=== PATIENT | male | born 1945 | race Caucasian/White ===

== ENCOUNTER 2025-07-13 08:08 | Day surgery (SDC) | payer OTHER ==
[~2025-07-13] VITALS: Ht 172.7 cm; Wt 99.0 kg
[2025-07-13] VITALS (12 sets, daily range): BP systolic 92–141; BP diastolic 60–84
[~2025-07-13 08:08] MED LIST: FINA5 PO; MULTI-VITAMIN1 EAC2 PO; ROSUVASTATIN CA20 MG PO; TAMS.4ER PO; ZESTORETIC 20-121 EA PO
[2025-07-13] MEDS ORDERED: CeFAZolin Sodium 2,000 MG in NS 100 ML IV SCH ×2 (08:25→18:20)
[2025-07-13] MEDS ORDERED: Chlorhexidine Mouth Care 15 ML UDC MT SCH (08:25)
[2025-07-13] MEDS ORDERED: Tranexamic Acid 100 ML IV SCH (08:25)
[2025-07-13] MEDS ORDERED: Ropivacaine 0.5% HCl/Pf 123.125 MG,EPINEPHrine HCL 0.25 MG,Ketorolac Tromethamine 15 MG... INFIL SCH (08:25)
[2025-07-13] MEDS ORDERED: ePHEDrine Sulfate 50 MG/ML 1ML Injection IV PRN (08:30)
[2025-07-13] MEDS ORDERED: Ondansetron HCl 2 MG / ML 2ML Vial IV PRN ×3 (08:30→10:25)
[2025-07-13] MEDS ORDERED: Albuterol 2.5 MG/3 ML VIAL INH PRN (08:30)
[2025-07-13] MEDS ORDERED: FentaNYL Citrate 50 MCG/ML 2 ML Injection IV PRN ×4 (08:35)
[2025-07-13] MEDS ORDERED: HYDROmorphone HCl/Pf 1MG SYR IV PRN ×5 (08:35→10:30)
[2025-07-13] MEDS ORDERED: HydrALAZINE HCl 20 MG / ML 1ML Vial IV PRN ×2 (08:35)
[2025-07-13] MEDS ORDERED: Metoclopramide HCl 5MG / ML 2ML Vial IV PRN ×2 (08:40→10:20)
[2025-07-13] MEDS ORDERED: Midazolam HCl 1MG / ML 2ML Vial ONE (08:41)
[2025-07-13] MEDS ORDERED: FentaNYL Citrate 50 MCG/ML 2 ML Injection ONE (08:41)
--- NOTE | 2025-07-13 08:51 | NUR ---
Pre-Op teaching done. Pt verbalizes understanding. Ambulatory in Day Surgery. History, Chart, Medications and Allergies reviewed before start of procedure. Patient confirms NPO status and agrees with scheduled surgery. Patient States Post-Procedure ride home has been arranged.
[2025-07-13] MEDS ORDERED: Magnesium Hydroxide Conc 10 ML UDC PO PRN (10:20)
[2025-07-13] MEDS ORDERED: Phenylephrine HCl 100 MCG/ML-NS 10MLSYR (1MG/10ML) ONE ×2 (10:29→11:41)
[2025-07-13] MEDS ORDERED: FLU VACC TS2025(65UP)/MF59C/PF 45 MCG/0.5 ML SYRINGE IM SCH (10:40)
[2025-07-13] MEDS ORDERED: ePHEDrine Sulfate 50 MG/ML 1ML Injection ONE (11:18)
[2025-07-13] MEDS ORDERED: Ketorolac Tromethamine 15mg Vial IV SCH (12:00)
--- NOTE | 2025-07-13 13:00 | NUR ---
TRANSFER TO 216. PT ARRIVED TO UNIT STATING PAIN /. DENIES PAIN FOR PRN AT THE TIME. PT EDUCATED TO INFORM RN SOON HE NOTICES PAIN INCREASE. PT STATED HE UNDERSTOOD. SNACKS AND BEVERAGES PROVIDED. PT BREATHING EVEN & UNLABORED ON RA. VS REVIEWED. L KNEE DRESSING C/D/I WITH NO BLEEDING OR SWELLING NOTED. AT BEDSIDE. CALL LIGHT IN REACH.
[2025-07-13] MEDS ORDERED: ACETAMINOPHEN500 MG PO (14:16)
[2025-07-13] MEDS ORDERED: ASPI81CH PO (14:16)
[2025-07-13] MEDS ORDERED: DOCU100 PO (14:17)
[2025-07-13] MEDS ORDERED: OXYC5 PO (14:18)
--- NOTE | 2025-07-13 14:30 | NUR ---
ATTEMPT TO VOID SENSATION RETURNED TO BLE AND PT WAS ABLE TO LIFT BOTH LEGS OFF BED FOR 10 SECONDS EACH. PT UP AND OOB AMBULATED TO BATHROOM WITH RN. UNABLE TO VOID AT THIS TIME. AMBULATED BACK TO BED.
--- NOTE | 2025-07-13 18:27 | NUR ---
SHIFT SUMMARY PT HAS ATTEMPTED TO VOID MULTIPLE TIMES SINCE CLEARED TO AMBULATE. PREVIOUSLY PT STATES HE HAD NO URGE TO URINATE, PT NOW STATES HE HAS THE URGE TO URINATE, BUT IS HAVING A HARD TIME INICIATING A STREAM. PT IS EATING DINNER AND IS AGREEABLE TO ANOTHER BLADDER SCAN AFTER HE FINISHES. CLEARED BY PHYSICAL THERAPY. VS REVIEWED. PT ANXIOUS ABOUT THE POSSIBLE NEED FOR A STRAIGHT CATH, BUT STATES IF HE "CANNOT PEE SOON HE IS AGREEABLE TO ONE". AT BEDSIDE. CALL LIGHT IN REACH.
--- NOTE | 2025-07-13 22:05 | NUR ---
DISCHARGE SUMMARY: PT D/C HOME W/ TO DRIVE. PT A/O, VSS, DENIES DIZZINESS/SOB. DRESSING CDI, PT MEDICATED FOR PAIN PER EMAR. PT DENIES N/T TO BLE. PT VOIDED W/O DIFFICULTY, PVR SCAN <200. DC INSTRUCTIONS AND F/C CARE REVIEWED W/PT AND . ALL QUESTIONS ANSWERED. PT AMB VIA W/C TO CAR, ASSISTED INTO CAR W/O DIFFIUCLTY. NO DISTRESS NOTED AT TIME OF DC.
[2025-07-14] MEDS ORDERED: Multivitamins 1 Tab PO SCH (09:00)
== END 2025-07-13 22:10 | disposition home or self-care (01) ==
LOC: ORSCMMR 08:08 → ORD 09:30 → SURS 13:27 → ORSCMMR 22:10 → ORD 08-17 09:30
PROVIDERS: Orthopaedic Surgery
PROC: 0SRD0JA Replacement of Left Knee Joint with Synthetic Substitute, Uncemented, Open Approach (ICD-10-PCS; principal; 2025-07-13 09:30)
DX: M17.12 Unilateral primary osteoarthritis, left knee (principal); I10 Essential (primary) hypertension; E78.5 Hyperlipidemia, unspecified; E66.9 Obesity, unspecified; Z68.33 Body mass index [BMI] 33.0-33.9, adult; Z79.899 Other long term (current) drug therapy
CPT/HCPCS: 27447; 0055T; 51702; 73560-LT; 97110; 97116; 97161; 97530; A9270; C1713; C1776; J0166; J0690; J0735; J1885; J2250; J2371; J2704; J2795; J3010; J7120